=== PATIENT | female | born 1955 | race Caucasian/White ===

== ENCOUNTER → 2021-03-05 11:30 | Outpatient (CLI) | payer MEDICARE, SELFPAY ==
--- NOTE | 2021-03-05 11:32 | DI.MRI.S_ITS ---
PROCEDURE: MR CERVICAL SPINE WO CON INDICATIONS: Progressive cervical stenosis TECHNIQUE: Noncontrast sagittal T1 spin echo and T2 fast spin echo, sagittal STIR, foraminal oblique sagittal T2 fast spin echo, and axial gradient echo or T2 fast spin echo through the cervical spine. COMPARISON: [facility], CR, XR CERVICAL SPINE FLEXION EXTENSION 3 VIEWS, 07/04/2020, 14:28. [facility], CR, XR CERVICAL SPINE 6+ VIEWS, 02/18/2021, 8:04. FINDINGS: Image quality: This examination is limited by involuntary motion artifact. Alignment and Curvature: There is normal bony alignment. Bone Marrow: Marrow demonstrates normal overall signal. Spinal Cord: Visualized spinal cord has normal size and signal. No cerebellar tonsillar herniation. Paraspinous Soft Tissues: No paravertebral masses. Prevertebral soft tissues are normal in thickness. C2-C3: The disc height is well-preserved. Loss of disc signal is seen at this level. Mild to moderate disc osteophyte complex is seen, with a small central disc osteophyte protrusion. Mild facet joint hypertrophy is seen. There is at least moderate right-sided and no significant left-sided neural foraminal narrowing seen. Mild central canal narrowing is seen. C3-C4: The disc height is well-preserved. Loss of disc signal is seen at this level. A mild degree of generalized disc osteophyte complex is seen. There is moderate right-sided and mild left-sided facet hypertrophy seen. There is at least moderate right-sided and moderate left-sided neural foraminal narrowing seen. Mild to moderate central canal narrowing can be seen. C4-C5: Mild loss of disc height is seen. Loss of disc signal is seen. Moderate generalized disc osteophyte complex is seen. There is a central disc osteophyte protrusion. There is prominent right-sided and moderate left-sided facet hypertrophy seen. There is moderate to severe bilateral neural foraminal narrowing seen, right worse than left. Moderate central canal narrowing is seen. There is associated mass effect upon the ventral spinal cord. C5-C6: Moderate loss of disc height is seen. Loss of disc signal is seen. Disc osteophyte complex is seen, which is eccentric to the right. There is moderate to prominent right-sided and [id number] left-sided facet hypertrophy seen. There is moderate to severe right-sided and moderate left-sided neural foraminal narrowing seen. At least moderate central canal narrowing is seen. There is associated mass effect upon the ventral spinal cord. C6-C7: At least moderate loss of disc height and disc signal can be seen. At least moderate disc osteophyte complex is seen. Moderate facet hypertrophy is seen, left worse than right. Moderate to severe bilateral neural foraminal narrowing is seen, right worse than left. Moderate central canal narrowing is seen. There is associated mass effect upon the ventral spinal cord. C7-T1: Mild loss of disc height is seen. Loss of disc signal is seen. A mild degree of generalized disc osteophyte complex is seen. Mild facet joint hypertrophy is seen. There is moderate right-sided and moderate to severe left-sided neural foraminal narrowing seen. No significant central canal narrowing is seen. IMPRESSION: Multiple levels of cervical spine degenerative change are seen, which are overall worst at C5-C6 and C6-C7. Dictated by: Tan Hoover M.D. on 03/05/2021 at 11:43 Approved by: Tan Hoover M.D. on 03/05/2021 at 11:47
== END ==
PROVIDERS: PCP Family Medicine; Referring Provider Family Medicine; Visit Provider Physical Medicine & Rehabilitation
DX: M48.02 Spinal stenosis, cervical region (principal); M50.322 Other cervical disc degeneration at C5-C6 level
CPT/HCPCS: 72141